=== PATIENT | female | born 1980 | race African-American/Black ===

== ENCOUNTER 2016-12-01 09:31 | Emergency (ER) | payer OTHER, MEDICAID ==
[~2016-12-01] VITALS: Ht 167.6 cm; Wt 78.0 kg
[~2016-12-01 09:31] MED LIST: ALBU1AER INH; BACT PO; FLUT1SPR9
[2016-12-01 09:36] VITALS: BP 111/83; PULSE 80; RESP 15; TEMP 97.7; O2SAT 98
[2016-12-01] MEDS ORDERED: ROBA500T PO (10:13)
[2016-12-01] MEDS ORDERED: IBUP800T23 PO (10:13)
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
[2016-12-01] MEDS ORDERED: METHOCARBAMOL 500 MG TAB PO ONE (10:15)
[2016-12-01] MEDS ORDERED: IBUPROFEN 800 MG TAB PO ONE (10:15)
== END 2016-12-01 10:29 | disposition home or self-care (01) ==
LOC: NEPB 09:31
DX: S39.012A Strain of muscle, fascia and tendon of lower back, initial encounter (principal); M62.830 Muscle spasm of back; V43.52XA Car driver injured in collision with other type car in traffic accident, initial encounter; Y99.8 Other external cause status
CPT/HCPCS: 99283